=== PATIENT | female | born 1985 | race Caucasian/White ===

== ENCOUNTER 2019-01-05 10:18 | Outpatient (CLI) | payer MEDICAID ==
[~2019-01-05] VITALS: Ht 162.6 cm; Wt 88.0 kg
[~2019-01-05 10:18] MED LIST: PRENAT PO
[2019-01-05 10:41] VITALS: Ht 162.6 cm; Wt 88.0 kg
[2019-01-05 10:42] VITALS: BP 102/63; PULSE 97; RESP 18
[2019-01-05] MEDS ORDERED: CYCLOBENZAPRINE 10 MG TAB PO ONE (11:30)
--- NOTE | 2019-01-05 12:27 | TRIAGE ---
OB Triage Datetime Report Generated by CPN: 01/05/2019 12:27 Datetime: 01/05/2019 11:00 Time of Arrival: 01/05/2019 10:10 EGA: 30.2 Arrived By: Ambulatory Arrived From: Home Chief Complaint: RIGHT FLANK PAIN DECREASED MOVEMENT Movement: Decreased Rupture of Membranes: Denies Vaginal Bleeding: None Vaginal Discharge: Denies Recent Sexual Intercouse: Denies Abdominal Trauma: Not Applicable Patient Complaints: Other Time Provider Notified: 01/05/2019 10:45 Provider Notified: dr thorpe Initial Plan: EFM,CLL LABORIST Datetime: 01/05/2019 10:58 Maternal Assessment Level of Consciousness: Keenly Alert, Responsive DTR's/Clonus: DTRs 2+; No Clonus Headache: Denies Blurred Vision: No Respiratory Effort: Unlabored; Regular Rhythm; Equal Expansion Breath Sounds, Left: Clear and Equal Breath Sounds, Right: Clear and Equal Nausea/Vomiting: Denies RUQ Epigastric Pain: Denies Facial Edema: None Temperature Route: Axillary Fall Risk Assessment History of Falling: (0) No Secondary Diagnosis: (0) No Ambulatory Aid: (0) Bedrest/Nurse Assist IV Therapy: (0) No Gait: (0) Normal/Bedrest/Immobile Mental Status: (0) Oriented to Own Ability Fall Score: 0 Fall Risk Score Definition: No Risk: No action required Datetime: 01/05/2019 10:40 Maternal Assessment Level of Consciousness: Keenly Alert, Responsive DTR's/Clonus: DTRs 2+ Headache: Denies Blurred Vision: No Nausea/Vomiting: Denies RUQ Epigastric Pain: Denies Facial Edema: None Labor Evaluation Frequency: NONE AT THIS TIME Monitor Mode: External Pattern: Normal: <= 5 Contractions in 10 Minutes Resting Tone [place]: Relaxed Heart Rate FHR Baseline Rate: 145 Monitor Mode: External US FHR Baseline Changes: No Baseline Change Variability: Moderate 6-25 bpm Accelerations: 15X15 Decelerations: None Category: Category I Pain Assessment Pain Scale: 3 Pain Presence: Constant Pain Type: Pressure Pain Location: Abdomen; Back Pain Goal: 0 Vaginal Exam Membrane Status: Intact
--- NOTE | 2019-01-21 18:31 | PN ---
Triage Information Date/Time Reason for visit: DFM Weeks of Gestation 30+ /Para 2 Assessment/Plan Patient presented at 30 weeks and 2 days decreased movement. urinalysis normal Category 1 tracing BPP 8 out of 8 Discharge to home and follow up with primary ob MILESTONE,MIRTHA RASCON Jan 21, 2019 18:31
== END 2019-01-05 12:35 | disposition home or self-care (01) ==
LOC: L-D 10:18 → OBT 10:18
PROVIDERS: ATTEND Obstetrics & Gynecology
DX: O36.8130 Decreased fetal movements, third trimester, not applicable or unspecified (principal); Z3A.30 30 weeks gestation of pregnancy
CPT/HCPCS: 76818; 81003; Z7500; Z7610; G0463

== ENCOUNTER 2019-03-14 21:11 | Inpatient (IN) | payer MEDICAID ==
[~2019-03-14] VITALS: Ht 167.6 cm; Wt 93.3 kg
[2019-03-14 21:58] VITALS: BP 102/68; PULSE 81; RESP 18
[2019-03-14] MEDS ORDERED: LACTATED RINGER'S 1,000 ML IV PRN (22:18)
[2019-03-14] MEDS ORDERED: LACTATED RINGER'S 1,000 ML IV SCH (22:18)
[2019-03-14] MEDS ORDERED: BUTORPHANOL 2 MG INJ IV PRN (22:30)
[2019-03-14] MEDS ORDERED: CARBOPROST 250 MCG INJ IM PRN (22:30)
[2019-03-14] MEDS ORDERED: OXYTOCIN 30 UNITS/LR 500 ML IV SCH ×2 (22:30)
[2019-03-14] MEDS ORDERED: OXYTOCIN 30 UNITS/LR 500 ML IV PRN (22:30)
[2019-03-14] MEDS ORDERED: MISOPROSTOL 200 MCG TAB PR PRN (22:30)
[2019-03-14] MEDS ORDERED: METHYLERGONOVINE 0.2 MG INJ IM PRN (22:30)
[2019-03-14] MEDS ORDERED: IBUPROFEN 600 MG TAB PO PRN (22:30)
[2019-03-14] MEDS ORDERED: LIDOCAINE 1% (MPF) 30 ML INJ INJ PRN (22:30)
[2019-03-15] MEDS ORDERED: FENTAnyl 2MCG/ML-ROPIV 0.2% 100 ML BAG EPI SCH
[2019-03-15] MEDS ORDERED: ONDANSETRON 4 MG INJ IV PRN
[2019-03-15] MEDS ORDERED: NALOXONE (0.4 MG/ML) INJ IV PRN
[2019-03-15] MEDS ORDERED: DIPHENHYDRAMINE 50 MG INJ IV PRN
[2019-03-15] MEDS ORDERED: MINERAL OIL LIGHT 10 ML VIAL TOP PRN (03:00)
[2019-03-15 06:00] VITALS: BP 101/58; PULSE 71; RESP 18
[2019-03-15] MEDS ORDERED: OXYTOCIN 30 UNITS/LR 500 ML IV PRN (06:00)
[2019-03-15] MEDS ORDERED: MISOPROSTOL 200 MCG TAB PR PRN (06:00)
[2019-03-15] MEDS ORDERED: CARBOPROST 250 MCG INJ IM PRN (06:00)
[2019-03-15] MEDS: IBUPROFEN 600 MG TAB PO SCH ×3 (06:00→18:10)
[2019-03-15] MEDS ORDERED: METHYLERGONOVINE 0.2 MG INJ IM PRN (06:00)
[2019-03-15] MEDS ORDERED: BENZOCAINE 20% 56 ML SPRAY TOP PRN (06:00)
[2019-03-15] MEDS ORDERED: WITCH HAZEL/GLYCERIN PAD PR PRN (06:00)
[2019-03-15] MEDS ORDERED: OXYCODONE/ASPIRIN (4.88/325) TAB PO PRN ×2 (06:00)
[2019-03-15] MEDS ORDERED: LANOLIN HPA 1 PKT TOP PRN (06:00)
[2019-03-15] MEDS ORDERED: ZOLPIDEM 5 MG TAB PO PRN (06:00)
[2019-03-15 08:30] VITALS: BP 99/58; PULSE 76; RESP 18
[2019-03-15] MEDS: SENNA/DOCUSATE NA (8.6MG/50MG) TAB PO SCH ×2 (11:14→21:12)
[2019-03-15 16:00] VITALS: BP 115/67; PULSE 81; RESP 18
[2019-03-15 19:40] VITALS: BP_SYST 113; BP_SYST 120; BP_DIAS 66; PULSE 86; RESP 18
[2019-03-16] VITALS: BP 110/65; PULSE 82; RESP 18
[2019-03-16] MEDS: IBUPROFEN 600 MG TAB PO SCH ×5 (00:31→23:46)
[2019-03-16 04:20] VITALS: BP 109/65; PULSE 79; RESP 18
[2019-03-16 07:30] VITALS: BP 102/66; PULSE 82; RESP 18
[2019-03-16] MEDS: SENNA/DOCUSATE NA (8.6MG/50MG) TAB PO SCH ×2 (09:10→23:46)
[2019-03-16 16:00] VITALS: BP 105/58; PULSE 77; RESP 18
[2019-03-16 19:57] VITALS: BP 112/79; PULSE 80; RESP 20
[2019-03-17 04:17] VITALS: BP 101/59; PULSE 74; RESP 20
[2019-03-17] MEDS: IBUPROFEN 600 MG TAB PO SCH ×2 (05:48→12:10)
[2019-03-17 07:50] VITALS: BP 111/55; PULSE 90; RESP 18
[2019-03-17] MEDS: SENNA/DOCUSATE NA (8.6MG/50MG) TAB PO SCH (08:53)
[2019-03-17] MEDS ORDERED: DIPHTH/TET/ACEL PERTUSS (ADULT) 0.5 ML VIAL IM* ONE (09:00)
== END 2019-03-17 13:15 | disposition home or self-care (01) | DRG 807 ==
LOC: OBT 21:11 → L-D 21:12 → OBT 22:16 → L-D 22:16 → MS1 03-15 05:48 → PP1 03-16 20:56
PROVIDERS: ADMIT Obstetrics & Gynecology; ATTEND Obstetrics & Gynecology
PROC: 10E0XZZ Delivery of Products of Conception, External Approach (ICD-10-PCS; principal; 2019-03-15)
PROC: 0UQMXZZ Repair Vulva, External Approach (ICD-10-PCS; 2019-03-15)
DX: O71.82 Other specified trauma to perineum and vulva (principal); Z37.0 Single live birth; Z3A.40 40 weeks gestation of pregnancy
CPT/HCPCS: 62322; 80307; 85025; 85610; 85730; 86592; 86850; 86900; 86901; 87340; G0463; J2590; J3010; J7120